=== PATIENT | female | born 1940 | race Caucasian/White ===

== ENCOUNTER 2016-12-25 17:12 | Emergency (ER) | payer MEDICARE ==
[~2016-12-25] VITALS: Ht 166.4 cm; Wt 68.7 kg
[~2016-12-25 17:12] MED LIST: ALPR0.25 PO; ASCO500T8 PO; ASPI-515 PO; CALC600T4 PO; CHOL100011 PO; PROM118S4; TEMA15CA PO; TIOT18CA INH
[2016-12-25] MEDS ORDERED: SODIUM CHLORIDE FLUSH 10ML SYR IVF ONE (18:00)
[2016-12-25 18:23] LABS: HEMATOCRIT 41.7 % (34.6-47.8); HEMOGLOBIN 13.9 g/dL (11.7-16.4); WHITE BLOOD COUNT 8.3 x10^3/uL (3.4-10)
[2016-12-25 18:34] LABS: BLOOD UREA NITROGEN 19 mg/dL (7-18)
[2016-12-25 18:37] LABS: ASPARTATE AMINO TRANSFERASE 15 U/L (15-37)
[2016-12-25] MEDS ORDERED: SODIUM CHLORIDE 0.9% 1,000ML IVBOLUS ONE (19:00)
[2016-12-25 19:12] LABS: PATH.CAST-FLAG NOT PRESENT; SPERM-FLAG NOT PRESENT; SRC-FLAG NOT PRESENT; XTAL-FLAG NOT PRESENT; YLC-FLAG NOT PRESENT
[2016-12-25] MEDS ORDERED: OMNIPAQUE 350 MG/ML, 100ML BOTTLE ONE (20:39)
[2016-12-25] MEDS ORDERED: PINK LADY ENEMA 1,000 ML PR ONE (21:00)
[2016-12-25 21:36] VITALS: BP 138/81
== END 2016-12-25 22:32 | disposition home or self-care (01) ==
LOC: ED 20:39
DX: K59.00 Constipation, unspecified (principal)
CPT/HCPCS: 36415; 74020; 74177; 80053; 81001; 83690; 85025; 87086; 96360; 99285; J7030; Q9967